=== PATIENT | male | born 1935 ===

== ENCOUNTER 2017-07-18 12:29 | Emergency (ER) | payer MEDICARE ==
[2017-07-18 12:41] VITALS: O2SAT 99
[2017-07-18] MEDS ORDERED: Albuterol-Ipratrop 3 mg / 0.5 (3 ml) UD IH STA (12:52)
--- NOTE | 2017-07-18 12:54 | ED PDOC ---
HPI: CCC, URI, Sore Throat Time Seen by Provider: 07/18/17 12:47 Chief Complaint (Nursing): Cough, Cold, Congestion History Per: Patient Onset/Duration Of Symptoms: Other (1 week) Current Symptoms Are (Timing): Still Present Location Of Pain: Throat Associated Symptoms: Fever, Sore Throat, Cough, Sputum (yellow) Severity: Mild Additional Complaint(s): Cough productive yellow sputum assoc with fever and sore throat. Denies chest pain or SOB Past Medical History Vital Signs: Last Vital Signs Temp 98.9 F 07/18/17 12:38 Pulse 71 07/18/17 12:38 Resp 19 07/18/17 12:38 BP 148/112 H 07/18/17 12:38 Pulse Ox 99 07/18/17 12:54 - Medical History PMH: No Chronic Diseases - Family History Family History: States: Unknown Family Hx - Home Medications Home Medications: Ambulatory Orders Medication Instructions Recorded Albuterol HFA [Ventolin HFA 90 2 puff IH Q4H #1 puff 07/18/17 mcg/actuation (8 g)] Sulfamethoxazole/Trimethoprim 1 tab PO BID #20 tab 07/18/17 [Bactrim DS 800 mg-160 mg] - Allergies Allergies/Adverse Reactions: Allergies Allergy/AdvReac Type Severity Reaction Status Date / Time No Known Allergies Allergy Verified 07/18/17 12:40 Review of Systems ROS Statement: Except As Marked, All Systems Reviewed And Found Negative Constitutional: Positive for: Fever ENT: Positive for: Throat Pain Cardiovascular: Negative for: Chest Pain Respiratory: Positive for: Cough, Sputum. Negative for: Shortness of Breath Physical Exam - Reviewed Nursing Documentation Reviewed: Yes Vital Signs Reviewed: Yes - Physical Exam Appears: Positive for: Non-toxic, No Acute Distress Head Exam: Positive for: ATRAUMATIC, NORMAL INSPECTION, NORMOCEPHALIC Skin: Positive for: Normal Color, Warm, DRY Eye Exam: Positive for: EOMI, Normal appearance, PERRL ENT: Positive for: Pharyngeal Erythema Neck: Positive for: Normal, Painless ROM Cardiovascular/Chest: Positive for: Regular Rate, Rhythm Respiratory: Positive for: Rhonchi. Negative for: Wheezing, Respiratory Distress Gastrointestinal/Abdominal: Positive for: Normal Exam, Bowel Sounds, Soft Back: Positive for: Normal Inspection Extremity: Positive for: Normal ROM Neurologic/Psych: Positive for: Alert, Oriented - ECG O2 Sat by Pulse Oximetry: 99 Disposition - Clinical Impression Clinical Impression: Bronchitis - Patient ED Disposition Is Patient to be Admitted: No - Disposition Referrals: [facility] [place] [Outside] Disposition: Routine/Home Disposition Time: 13:52 Condition: FAIR Prescriptions: Albuterol HFA [Ventolin HFA 90 mcg/actuation (8 g)] 2 puff IH Q4H #1 puff Sulfamethoxazole/Trimethoprim [Bactrim DS 800 mg-160 mg] 1 tab PO BID #20 tab Instructions: Acute Bronchitis (ED) Forms: [facility] (Chinese) Print Language: FINNISH
[2017-07-18] MEDS ORDERED: Albuterol-Ipratrop 3 mg / 0.5 (3 ml) UD ONE (13:00)
--- NOTE | 2017-07-18 13:59 | RAD ---
HISTORY: COMPARISON: No prior. TECHNIQUE: Chest PA and lateral FINDINGS: LINES AND TUBES: None. LUNG AND PLEURA: The lungs are hyperinflated and there is peribronchial thickening with chronic changes in the lower lobes. No lobar pneumonia. HEART AND MEDIASTINUM: The heart is not enlarged. The hilar and mediastinal contours are within normal limits. SKELETAL STRUCTURES: The bony structures are within normal limits for the patient's age. VISUALIZED UPPER ABDOMEN: Normal. OTHER FINDINGS: None. IMPRESSION: No active pulmonary disease. COPD.
[2017-07-18 14:07] VITALS: BP 165/77; PULSE 70; RESP 16; TEMP 98.8
== END 2017-07-18 14:05 | disposition home or self-care (01) ==
LOC: H.ER 12:29
DX: J40 Bronchitis, not specified as acute or chronic (principal)